=== PATIENT | male | born 1960 | race Caucasian/White ===

== ENCOUNTER 2016-04-30 10:23 | Day surgery (SDC) | payer OTHER ==
[~2016-04-30] VITALS: Ht 172.7 cm; Wt 80.0 kg
[~2016-04-30 10:23] MED LIST: 0.9% Sodium Chloride 1,000 ML IV PRN; CALC600T12 PO; GLUC1CAP8 PO; NOMED; OXYC1TAB24 PO; Sodium Chloride LOK Flush 10 mL Syringe IV PRN; TRAZ-118 PO; VITA400C64 PO; fentaNYL-PF 50 mCg/mL 2 mL Inj IVPUSH PRN
[2016-04-30 10:57] VITALS: BP 119/84; PULSE 69; RESP 16; O2SAT 99
--- NOTE | 2016-04-30 11:50 | PCM.ENDCOL ---
Colonoscopy Date of Service: Apr 30, 2016 Physician Saúl Reed MD Indication for Procedure Blood in the stools Post Procedure Dx & Findings: Polyp hemorrhoids Procedure Colonoscopy Prep adequate Withdrawal 11 minutes PROCEDURE IN DETAIL: After unremarkable rectal examination Olympus video colonoscope was inserted into patient's anal canal. It was advanced to cecum. Landmarks are identified including the ileocecal valve and the appendiceal orifice. Scope was withdrawn systematically. The mucosa of the cecum, ascending, transverse, descending, sigmoid, rectal mucosa lined with whitish, pink, smooth, glistening, normal-appearing mucosa, normal fine branching, underlying vascularity, normal haustra. The patient tolerated procedure and was transported to observation area. Indications transverse colon there were two 1 mm polyps which were resected completely using cold forceps. In the rectum retroflexion was done which showed hemorrhoid. Anal canal was inspected carefully on the way out and hemorrhoids noted. Impression Polyp 2 status post complete removal Hemorrhoids Recommendation Repeat colonoscopy 5 years Presedation Assessment Risks and Benefits Informed consent was obtained from the patient after all risks and benefits including but not limited to drug reaction, infection, pain, bleeding, perforation, as well as alternatives were discussed. Patient monitoring Continuous pulse oximetry, cardiac monitoring, blood pressure monitoring, IV access, and oxygen at 2L per nasal cannula. Periprocedural Fentanyl: Fentanyl 100mcg Incrementally Midazolam: Midazolam 4mg Incrementally Complications There were no periprocedural complications identified. Post Procedure Plan Post Procedure Recommendations 1. Restrict activities today. 2. Resume normal activities in the morning. 3. Resume medications. 4. Patient informed of normal post procedure side effects as bloating, drowsiness, blood streaking in the stool. 5. average risk CRCS. If colon polyps come back as: -Hyperplastic- can repeat colonoscopy in 10 years -Tubular adenoma- repeat colonoscopy in 5 years -Tubulovillous/villous adenoma- repeat colonoscopy in 3 years -If any dysplasia- return to clinic as soon as possible 6. Please don't hesitate to call me with any questions. Saúl Reed MD Apr 30, 2016 11:50
[2016-04-30 11:52] VITALS: BP 116/70; PULSE 70; RESP 16; O2SAT 94
[2016-04-30 12:02] VITALS: BP 102/67; PULSE 67; RESP 16; O2SAT 94
[2016-04-30 12:09] VITALS: BP 117/75; PULSE 76; RESP 16; O2SAT 97
--- NOTE | 2016-05-04 13:41 | PATH ---
SURGICAL PATHOLOGY Attending Physician:Saúl Reed M.D. CASE STATUS: Signed Out PATIENT NAME: RON WADDELL JR PID: [id number] : 1960 DATE COLLECTED:04/30/2016 22:18 SPECIMEN: Colon, Biopsy CLINICAL HISTORY: 1). TRANSVERSE POLYP X2 FINAL DIAGNOSIS: 1.TRANSVERSE COLON POLYP: HYPERPLASTIC POLYP INVOLVING SINGLE BIOPSY FRAGMENT. ICD10 CODE K63.5 GROSS DESCRIPTION: The specimen is received in one formalin filled container labeled with the patient's name, sublabeled "transverse polyp X2" and consists of 2 portions of tissue which aggregate to 0.3 x 0.3 x 0.2 CM. The specimen is entirely submitted in one cassette. 04/30/2016 DAC MICRO DESCRIPTION: See diagnosis. ICD-9 CODES: CPT CODES: 1: 40684 Electronically Signed Out John Webber MD [facility] [address], [place] [address] Technical component performed at [facility], [facility] [address], [place], [address]
== END 2016-04-30 23:59 | disposition home or self-care (01) ==
LOC: END 10:23
PROVIDERS: ATTEND Internal Medicine
DX: K92.1 Melena (principal); K63.5 Polyp of colon; K64.9 Unspecified hemorrhoids; Z86.010 Personal history of colon polyps
CPT/HCPCS: 45380; 88305; G0500; J2250; J3010; J7030